=== PATIENT | male | born 1985 | race Caucasian/White ===

== ENCOUNTER 2016-09-29 21:40 | Inpatient (IN) | payer OTHER ==
--- NOTE | 2016-09-29 23:15 | EDPHY ---
H & P Stated Complaint: unable to sleep, bipolar Source: Patient Exam Limitations: No limitations - Personal History Current Tetanus Diphtheria and Acellular Pertussis (TDAP): Unsure - Medical/Surgical History Hx Asthma: No Hx Chronic Respiratory Disease: No Hx Diabetes: No Hx Cardiac Disease: No Hx Renal Disease: No Hx Cirrhosis: No Hx Alcoholism: No Hx HIV/AIDS: No Hx Splenectomy or Spleen Trauma: No Other PMH: fractured wrist, ADHD, Bipolar I. - Social History Smoking Status: Current some day smoker HPI/ROS: CHIEF COMPLAINT: Not sleeping HISTORY OF PRESENT ILLNESS: Patient presents with his father. Patient father reports that the patient has not slept for the past 7+ days. They are not entirely sure. He does have history of bipolar disorder any takes Abilify for this. He sees psychiatrist Dr. Luevano here in [place]. 1-2 weeks ago his Abilify was up from 20 mg daily to 30 mg daily. He said that his mood was better until the recent episode of in somnolence. He has had no thoughts of self-harm or homicidal thoughts. He has no wishes to harm himself. He is here voluntarily wants to get better and wants to sleep. He says that he is not entirely sure how much he slept in the past 7 days. He is calm and cooperative with his history of present illness. He has no other associated complaints or modifying factors. REVIEW OF SYSTEMS: Ten systems reviewed and are negative unless otherwise noted in the HPI PAST MEDICAL HISTORY: Bipolar disorder, attention deficit hyperactivity disorder SOCIAL HISTORY: Smokes cigarettes. Lives here in [place] an apartment by himself. His father lives in [facility]. FAMILY HISTORY: Noncontributory. EXAMINATION General Appearance: Alert, no distress Head: normocephalic, atraumatic Eyes: Pupils equal and round, no conjunctival pallor or injection ENT, Mouth: Mucous membranes moist. Uvula midline. Airway patent Neck: Normal inspection, supple, non-tender Respiratory: Lungs are clear to auscultation Cardiovascular: Regular rate and rhythm. No murmur. Pulses intact distally. Gastrointestinal: Abdomen is soft and nontender Back: non-tender, no bony abnormalities Neurological: GCS 15. Cranial nerves 2-12 grossly intact. A&O, nonfocal, normal gait. Strength is symmetric in all 4 limbs. Skin: Warm and dry, no rash Extremities: Nontender, no pedal edema Psychiatric: Mood and affect normal DIFFERENTIAL DIAGNOSES: Including but not limited to manic episode, sub manic episode, bipolar disorder , attention deficit hyperactivity disorder, insomnia MDM: 11:15 p.m. Manic episode a of 7+ days. The patient's father is at bedside with him. He is not suicidal or homicidal be does appear to be any manic episode. I have placed him on a detainer to complete a psychiatric workup. Resting comfortably in no acute distress. 12:30 a.m. Patient has been medically cleared. He is resting comfortably in no acute distress. His urine tox is positive for marijuana which he admits to. His urine tox is positive for amphetamine, but he does take stimulants for his attention deficit hyperactivity disorder. 12:59 a.m. At this time I have discussed the case with Dr. Garcia. He will assume care of the patient at this time. Please see his note for final disposition. Patient remains calm and cooperative. Awaiting evaluation at this time. SUPERVISION: Patient was evaluated in conjunction with the supervising physician. Please see their note for details. (Rock Schwartz) Constitutional: Initial Vital Signs Temperature (C) 98.2 F 09/29/16 22:03 Heart Rate 110 H 09/29/16 22:03 Respiratory Rate 16 09/29/16 22:03 Blood Pressure 129/92 H 09/29/16 22:03 O2 Sat (%) 97 09/29/16 22:03 O2 Delivery Mode Room Air Allergies/Adverse Reactions: oxcarbazepine [From Trileptal] Allergy (Verified 09/29/16 22:02) Home Medications: Medication Instructions Recorded ARIPiprazole [Abilify 10 mg (*)] 15 mg PO DAILY #30 tab 10/03/16 Melatonin [Melatonin 3 MG (*)] 3 mg PO HS PRN #30 tab 10/03/16 Medical Decision Making ED Course/Re-evaluation: I took over care of this patient at 1:00 a.m.. The patient is currently on a detainer. He is bipolar and currently manic. He is to be evaluated shortly. 3:00 a.m., the patient was seen and evaluated by Behavioral Health. He was placed on an M1 hold by psychiatrist Dr. Campbell. He will be admitted to [address] [place] [address] for further management under the care of Dr. Campbell. 3:30 a.m., I have filled out the appropriate transfer paperwork. The patient was transferred to [address] [place] [address] in stable condition. (Mimi Garcia) - Data Points Laboratory Results: Laboratory Results 09/29/16 22:44 09/29/16 22:44 Medications Given: Discontinued Medications Aripiprazole (Abilify) 15 mg PO DAILY [facility] Stop: 03/29/17 13:14 Last Admin: 10/03/16 08:22 Dose: 15 mg Folic Acid (Folic Acid) 1 mg PO DAILY [facility] Stop: 03/30/17 08:59 Last Admin: 10/03/16 08:24 Dose: 1 mg Ibuprofen (Motrin) 400 mg PO Q6HRS PRN PRN Reason: Pain, Inflammatory Stop: 03/29/17 13:11 Last Admin: 09/30/16 14:31 Dose: 400 mg Lorazepam (Ativan) 0.5 - 1 mg PO Q4HRS PRN PRN Reason: Anxiety, Able to Take PO Stop: 03/29/17 05:41 Last Admin: 09/30/16 22:28 Dose: 1 mg Multivitamins (Tab-A-Koki) 1 each PO DAILY [facility] Stop: 03/30/17 08:59 Last Admin: 10/03/16 08:24 Dose: 1 each Nicotine (Nicoderm Cq) 21 mg TD EDNOW ONE Stop: 09/30/16 02:40 Last Admin: 09/30/16 02:49 Dose: 21 mg Nicotine (Nicoderm Cq) 14 mg TD DAILY PRN PRN Reason: Nicotine Withdrawal Stop: 03/29/17 13:14 Last Admin: 10/01/16 08:39 Dose: 14 mg Nicotine Polacrilex (Nicorette) 2 mg B Q1HR PRN PRN Reason: Nicotine Withdrawal Stop: 03/29/17 05:41 Last Admin: 10/03/16 13:50 Dose: 2 mg Thiamine HCl (Vitamin B-1) 100 mg PO DAILY [facility] Stop: 10/03/16 09:01 Last Admin: 10/03/16 08:25 Dose: 100 mg Thiamine HCl (Vitamin B-1) 100 mg PO ONCE ONE Stop: 09/30/16 13:13 Last Admin: 09/30/16 15:05 Dose: 100 mg Departure - Departure Disposition: [facility] IP Clinical Impression: Bipolar disease, manic Condition: Fair
[2016-09-29 23:20] LABS: % IMMATURE GRANULYOCYTES 0.4 % (0.0-1.1); ABSOLUTE IMMATURE GRANULOCYTES 0.03 10^3/uL (0.00-0.10); ADD DIFF? NO; ADD MORPH? NO; ADD SCAN? NO; ATYPICAL LYMPHOCYTE FLAG 10 (0-99); FRAGMENT RBC FLAG 0 (0-99); HEMATOCRIT 47.3 % (40.0-51.0); HEMOGLOBIN 16.5 g/dL (13.7-17.5); LEFT SHIFT FLG 0 (0-99); LIPEMIA HEMOLYSIS FLAG 90 (0-99); MEAN CELL HEMOGLOBIN 31.8 pg (27.9-34.1); MEAN CELL HEMOGLOBIN CONCENTR. 34.9 g/dL (32.4-36.7); MEAN CELL VOLUME 91.1 fL (81.5-99.8); MEAN PLATELET VOLUME 10.7 fL (8.7-11.7); PLATELET CLUMPS FLAG 20 (0-99); PLATELET COUNT 195 10^3/uL (150-400); RED BLOOD CELL COUNT 5.19 10^6/uL (4.40-6.38); RED CELL DISTRIBUTION WIDTH 11.6 % (11.5-15.2)
[2016-09-29 23:50] LABS: ALANINE AMINOTRANSFERASE 27 IU/L (21-72); ALBUMIN 4.5 g/dL (3.5-5.0); ALKALINE PHOSPHATASE 67 IU/L (38-126); ANION GAP 14 mEq/L (8-16); ASPARTATE AMINOTRANSFERASE 23 IU/L (17-59); BILIRUBIN,TOTAL 1.1 mg/dL (0.1-1.4); BILIRUBIN-CONJUGATED 0.4 mg/dL (0.0-0.5); BILIRUBIN-UNCONJUGATED 0.7 mg/dL (0.0-1.1); CALCIUM 9.7 mg/dL (8.5-10.4); CARBON DIOXIDE 21 mEq/l (22-31); CHLORIDE 109 mEq/L (97-110); CREATININE 1.2 mg/dL (0.7-1.3); ETHANOL SERUM < 10 mg/dL (0-10); GLOMERULAR FILTRATION RATE > 60; GLUCOSE 96 mg/dL (70-100); POTASSIUM 4.1 mEq/L (3.5-5.2); SALICYLATE < 1.0 mg/dL (2.0-20.0); SODIUM 144 mEq/L (134-144); TOTAL PROTEIN 6.9 g/dL (6.3-8.2)
[2016-09-30] MEDS ORDERED: NICOTINE 21 MG/24 HR PATCH TD ONE (02:39)
[2016-09-30] MEDS ORDERED: ACETAMINOPHEN 325 MG TAB PO PRN (05:42)
[2016-09-30] MEDS ORDERED: MAG HYDROX/AL HYDROX/SIMETH 30 ML UDCUP PO PRN (05:42)
[2016-09-30] MEDS ORDERED: MAGNESIUM HYDROXIDE 30 ML UDCUP PO PRN (05:42)
[2016-09-30] MEDS ORDERED: LORazepam 0.5 MG TAB PO PRN (05:42)
[2016-09-30] MEDS ORDERED: OLANZapine 10 MG TAB PO PRN ×2 (05:43→13:13)
[2016-09-30] MEDS: NICOTINE POLACRILEX 2 MG GUM B PRN ×3 (06:05→19:11)
[2016-09-30] MEDS ORDERED: PROMETHAZINE HCL 25 MG TAB PO PRN (13:12)
[2016-09-30] MEDS ORDERED: chlordiazePOXIDE 25 MG CAP PO PRN (13:12)
[2016-09-30] MEDS ORDERED: PROMETHAZINE HCL 25 MG SUPPR PR PRN (13:12)
[2016-09-30] MEDS ORDERED: IBUPROFEN 200 MG TAB PO PRN (13:12)
[2016-09-30] MEDS ORDERED: THIAMINE HCL 100 MG TAB PO ONE (13:12)
[2016-09-30] MEDS ORDERED: NICOTINE 14 MG/24 HR PATCH TD PRN (13:14)
[2016-09-30] MEDS ORDERED: MELATONIN 3 MG TAB PO PRN (13:16)
[2016-09-30] MEDS ORDERED: SENNOSIDES 1 TAB PO PRN (13:36)
[2016-09-30] MEDS: ARIPiprazole 10 MG TAB PO SCH (14:30)
--- NOTE | 2016-09-30 15:41 | BAPA ---
[f rep st] ADMISSION PSYCHIATRIC ASSESSMENT DATE OF SERVICE: 09/30/2016 CHIEF COMPLAINT: "I haven't been sleeping. I became very disorganized. I was smoking a lot of pot , spending time in front of the TV." HISTORY OF PRESENT ILLNESS: Patient is a 31-year-old unmarried man who presented to [facility] voluntarily with his father after not having slept for approximately 7 days and having increased p aranoia. Patient reported that he felt like people were hacking into his computer, and these though ts are not normal for him. Patient states he believes this has been going on for about a week, but he is not entirely sure for how long. Per Father, he has witnessed paranoid behavior from the patie nt this week when patient insisted on closing his blinds because he believes someone was staring int o his window. Father stated patient has had paranoid behavior on and off since the patient's diagno sis at the age of 18. Father stated he is concerned for the patient's safety, as he has made suicid al threats in the past. Father said he did not make any suicidal statements on the day that he took him to the emergency room. In the ED, patient denied any thoughts, plans, or intents to hurt himse lf or anyone else. He has a history of bipolar I diagnosis and ADHD diagnosis. Patient denied any prior suicide attempts. Patient states that the reason he called his father on night was b ecause "I didn't feel like I was able to make decisions." He says that calling his father was "a cr y for help." Patient states that he has been "smoking a lot of pot" and isolating in his house. He says that when he smokes pot, it makes him more paranoid and more anxious. He says that he also ge ts a lot of visual distortions. He sees different shapes and things moving in his visual field, but he denies any auditory or visual hallucinations. He states that he has also been drinking a lot of alcohol but says that he has not had anything to drink for the last 3-4 days. He says that when he drinks, he does sometimes black out. PAST PSYCHIATRIC HISTORY: Last fall, the father said that the patient made suicidal statements and police were alerted, and the patient was hospitalized. He has 3 prior hospitalizations, 1 in [facility] in 2003 and 2 in [place] approximately 5 years ago. Patient denies any thoughts of HI or a hi story of violence but stated he has "hurt people emotionally." Patient states that he was in [facility] last fall sometime, but he cannot remember the exact circumstances but says that he was dischar gebarry from the ED without being placed on an M1 hold because he was deemed to safe to go home. Joe mclean sees Dr. Randy Luevano as his outpatient psychiatrist, and he sees Julissa Carvalho as his therapi st. Patient states that he has been taking Abilify and Vyvanse for "several years." He states that Dr. Luevano recently increased his Abilify from 10 mg to 20 mg approximately 1 to 2 weeks ago mane und the time that his symptoms started worsening. However, patient is very guarded when MD asked qu estions about his use of medications, and he admits that he may be taking more Vyvanse than he is pr escribed. During the conversation, when MD asked patient how often he sees Dr. Luevano, the patie nt said, "Only when I need more speed." MD clarified if the patient, by speed, meant Vyvanse, and t he patient said, yes, that is what he meant. ALLERGIES: Patient states that he has an allergy to Tegretol. CURRENT MEDICATIONS: Patient is on Abilify 20 mg p.o. daily, Vyvanse 40 mg p.o. daily. He denies a ny other prescription medications. PAST MEDICAL HISTORY: Patient denies that he has any physical health problems. He says that he had surgery on his left finger after a fracture, that he had some hardware placed. He says that he did have a concussion about 5-10 years ago. He is not sure. He was intoxicated at the time, fell and his hit his head on a toilet bowl. He needed stitches in the ED. SOCIAL HISTORY: The patient lives alone in an apartment with a cat. His father lives in [place]. Both his biological parents are still , and they live in [place]. He states that his par ents are quite wealthy and they finally support him. He states that he does have a 33-year-old sist er who lives in [place] but that he is not very close to her and that they do not stay in contact. T he patient does not work and is financially supported by his parents. LEGAL HISTORY: Patient denies any arrests but states that he had a restraining order placed against him approximately a year ago. It was for making too many unwanted calls to a girl that he was inte rested in, but he says that they were not in a "sexual relationship." SUBSTANCE USE HISTORY: Patient states that he started drinking and smoking marijuana around 17 year s old. He says that he smoked marijuana daily since the age of 17. He says that he also has been a heavy drinker. He says that he drinks anywhere from 1-2 six-packs of beer every other day and says that he endorses having blackouts, but he denies any withdrawal symptoms. He denies any history of withdrawal seizures. He states that he has not had any alcohol in the last 3-4 days, and his blood alcohol level in the ED was less than 10. He denies any other drug use. FAMILY HISTORY: Patient and father both deny any family history of mental illness, psychiatric diag noses, and no history of substance use disorders. ADMISSION LABORATORIES: On admission in the ED, patient's white cell count was 8.34, his hemoglobin was 16.5, his hematocrit was 47.3, platelet count was 195. His sodium was 144, potassium was 4.1, chloride was 109, BUN was 11, creatinine was 1.2. His glucose was 96. His AST was 23, ALT was 27, alk phos was 67, total protein was 6.9. His toxicology screen: Salicylates and acetaminophen were undetectable. His urine drug screen was positive for both amphetamines and marijuana. His blood al cohol level was less than 10. MENTAL STATUS EXAMINATION: Patient is a well-developed man with several days' growth of b eard. He has a blunted affect and has some psychomotor retardation. His speech is slow. He is oth erwise pleasant, calm, and cooperative. His affect is blunted. His mood, he says, is "okay." His thought process is tangential. He occasionally does lose his train of thought and asks the MD to re peat his questions, although, for most of the interview, he has no response latency, and his speech is fluid. His thought content: Patient denies any auditory or visual hallucinations. He denies an y paranoia. There is no evidence of psychosis or delusions. He denies any thought, plans, or inten ts to hurt himself or anyone else. He is alert and oriented x3. His intellect appears to be somewh at below average based upon his fund of knowledge and vocabulary, but it may just be due to his psyc homotor retardation. His insight and judgment both appear to be poor. IMPRESSION: This is a 31-year-old male with a prior diagnosis of bipolar disorder and ADHD who is c urrently being treated by his outpatient psychiatrist with Abilify and Vyvanse. His main complaint upon presentation to the ED was that he had not been sleeping and he was very disorganized and that he had been smoking a lot of pot. There are questions of whether or not the patient is abusing his Vyvanse, but he has certainly been smoking a lot of pot and drinking alcohol to intoxication on a re gular basis. All of his substance use problems would account for the lack of mental clarity, the di sorganization, the confusion, the lack of sleep, as well as some of the mood lability that he presen ts with. He is not currently psychotic, nor does he demonstrate any signs or symptoms of rocio; the refore, this seems likely to be substance induced primarily. DIAGNOSES: 1. 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 2. Cannabis use disorder, severe, dependent. 3. Alcohol use disorder, severe, dependent. Not currently experiencing withdrawal. It has been gr eater than 96 hours since the patient's last drink. He denies any signs of withdrawal, and his murphy l signs are stable. 4. Amphetamine use disorder. 5. Psychosocial stressors include some possible social and emotional developmental delay. He is un employed. He is financially supported by his parents. He is isolated, lives alone, has limited sup port, and his family lives in other cities. PLAN: 1. Admit patient to the behavioral health inpatient unit on an M1 hold. 2. Monitor closely for safety and suicide precautions. 3. Recommend holding patient's Vyvanse, as this is likely contributing to his insomnia as well as h is mood instability and possibly his thought disorganization. He also admits that he has been abusi ng this medication by taking more than the prescribed amount. We will also recommend lowering his A bilify dose, as the patient had his Abilify basically doubled within the last 2 weeks. MD explained to the patient that it might be more logical to increase his dose in a stepwise fashion and prescri be 15 mg for a period of time before deciding whether or not he needs the additional higher dose. I t is also not clear that any of his mood instability is actually due to a comorbid mood disorder, an d it would be impossible to make that determination as long as the patient continues to use serious mood altering substances in such large quantities and so frequently. 4. Therefore, would strongly recommend that this patient get substance use disorder intervention. At a minimum, MD would recommend intensive outpatient treatment, as patient has had this problem for almost 15 years. He has been a daily user of mood altering substances, all of which can contribute to symptoms of depression, thought disorganization, insomnia, mood lability, irritability, suicidal ideation, all the problems for which he has been hospitalized and/or treated on an outpatient basis . The primary diagnosis, therefore, that this MD sees as contributing to his current presentation, is his substance use disorder which does not seem to be effectively treated or managed at the [facility]. Would recommend, therefore, substance-specific treatment, such as IOP or similar, to begin, followed up with aftercare plan with one-on-one counseling with a certified addictions counselor. 5. Patient will engage in individual, group, and milieu psychotherapies. 6. Estimated length of stay is 3-5 days. 7. retail pricing coordinator will assist with making followup appointments with the patient's regular outpat ient provider including Dr. Luevano and Julissa Carvalho, his therapist. /[id number]/MODL
--- NOTE | 2016-09-30 21:57 | BCON ---
[f rep st] BEHAVIORAL HEALTH CONSULTATION INTERNAL MEDICINE CONSULTATION DATE OF CONSULTATION: 09/30/2016 REFERRING PHYSICIAN: Blas Campbell MD REASON FOR REFERRAL: Medical clearance for inpatient behavioral health stay. HISTORY OF PRESENT ILLNESS: This patient presented to the [facility] Emergency Department with his father. Father was reporting that the patient had not slept for 7+ days. He has a history of bipolar disorder, and there was concern about an exacerbation. He was evaluated by the mental health team and admitted for further psychiatric care. He has no acute medical complaints. He reports that his chest feels somewhat tight and he thinks it may be because he is a smoker. He denies any cough or dyspnea other than the usual smoker's cough. PAST MEDICAL HISTORY: 1. Mental health diagnoses including ADHD and bipolar 1. 2. Right hand 3rd finger fracture, which was surgically repaired. MEDICATIONS: He is prescribed lisdexamfetamine 40 mg p.o. daily and aripiprazole 10 mg p.o. daily. ALLERGIES: There is an allergy listed to oxcarbazepine. SOCIAL HISTORY: He lives by himself in an apartment in [place]. He smokes cigarettes. He does not work and he reports that "I sit around and smoke marijuana all day and stare at the computer." FAMILY HISTORY: Noncontributory. REVIEW OF SYSTEMS: A 10-point review of systems was conducted and other than as in HPI, it was negative. He reports constipation times several days. He is not sure how long. PHYSICAL EXAM: VITAL SIGNS: Blood pressure is 147/76. Heart rate is 100. Respiratory rate is 14. Oxygen saturation is 97% on room air. Temperature is 36.6 degrees centigrade. His weight is 90.7 kg for a body mass index of 25. GENERAL: This is a well-nourished, well-developed man, appears his chronologic age, cooperative, and in no acute distress. HEENT: Extraocular movements are intact. Pupils are equal, round, and reactive to light. Mucous membranes are moist. Dentition is in good condition. NECK: Supple. HEART: There is regular rate and rhythm with no murmurs, rubs, or gallops. LUNGS: Clear to auscultation bilaterally. ABDOMEN: Soft, nontender, nondistended with normoactive bowel sounds. EXTREMITIES: There is no cyanosis, clubbing, or edema. NEUROLOGIC: He is alert and oriented x3. He is sad in appearance and has episodes of tearfulness. Cranial nerves 2-12 are grossly intact. There is no focal weakness. Sensation is intact to light touch, and gait is within normal limits. LABORATORY STUDIES: Drawn in the emergency department: CBC was overall within normal limits. Serum chemistry revealed a slightly low carbon dioxide of 21. Otherwise, renal function, liver function, and electrolytes were within normal limits. Toxicology screen in the serum was negative for salicylates, acetaminophen, or ethyl alcohol, and in the urine was non-negative for amphetamines and marijuana, but negative for any other substances of abuse. ASSESSMENT/RECOMMENDATIONS: 1. Mental health issues. Pending further evaluation and management per Psychiatry and the mental health team. 2. Tobacco dependence syndrome. Advised smoking cessation. 3. Elevated blood pressure. Advised monitoring blood pressure. If it remains elevated, would consider initiating antihypertensive therapy. 4. Constipation. I will prescribe senna on a p.r.n. basis. I see no medical contraindications to this patient's continued stay in the inpatient behavioral health unit or to any psychiatric medications or procedures. Thank you very much for including me in the care of this patient and please do not hesitate to contact me or the hospitalist service should there be need for further medical evaluation. /[id number]/MODL MTDD
[2016-10-01] MEDS: NICOTINE POLACRILEX 2 MG GUM B PRN ×2 (06:30→12:31)
[2016-10-01] MEDS: THIAMINE HCL 100 MG TAB PO SCH (08:37)
[2016-10-01] MEDS: ARIPiprazole 10 MG TAB PO SCH (08:37)
[2016-10-01] MEDS: MULTIVITAMINS 1 EACH TAB PO SCH (08:38)
[2016-10-01] MEDS: FOLIC ACID 1 MG TAB PO SCH (08:38)
--- NOTE | 2016-10-01 20:09 | SOAPPROG ---
SOAP Progress Note Assessment/Plan: Assessment: Plan: 10/01/16 20:10 Improving. CCM. Subjective: Pt seen, discussed with staff ,chart reviewed. Went to group this morning and then retired to his room and slept. C/o of anxiety but not reaching threshold on CIWA. Overall cooperative if a bit guarded. Offers no other specific c/o' s. Objective: Vital Signs Temp Pulse Resp BP Pulse Ox 36.4 C 91 14 136/79 H 97 10/01/16 14:55 10/01/16 18:00 10/01/16 14:55 10/01/16 18:00 10/01/16 18:00 MSE: Adequately groomed, coop. Affect is constricted, stable. Mood is "OK." TP linear. TC reveals no overt psychosis. Possible mild paranoia. Denies active SI to me. - Time Spent With Patient Time Spent With Patient: 15" ICD10 Worksheet Patient Problems: Problems Problem Status Onset Bipolar disease, manic Acute
[2016-10-02] MEDS: NICOTINE POLACRILEX 2 MG GUM B PRN ×4 (06:01→17:08)
[2016-10-02] MEDS: FOLIC ACID 1 MG TAB PO SCH (08:20)
[2016-10-02] MEDS: MULTIVITAMINS 1 EACH TAB PO SCH (08:20)
[2016-10-02] MEDS: THIAMINE HCL 100 MG TAB PO SCH (08:21)
[2016-10-02] MEDS: ARIPiprazole 10 MG TAB PO SCH (08:21)
--- NOTE | 2016-10-02 21:10 | SOAPPROG ---
SOAP Progress Note Assessment/Plan: Assessment: 31yo CM admitted 2/2 incr paranoia/psychosis, and insomnia. Per admission H/P, had been using THC, recent EtOH and more Vyvanse than Rxd, also Abilify dose increased over 2 weeks. 10/02/16 15:30 Pt slept 8hr per staff. 0-1 on CIWAs. On interview, states parents visited today. Good visit, feels they are supportive. Denied any misuse or overuse of Vyvanse. 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 Came in with father, didn't expect nor want inpt psych. Does feel better gradually, daily, since in hospital, he admits. feels getting caught up on sleep. a bit irritable b/c "i was woken up to get asked stupid questions", but then conceded that he has slept a lot already, and that there were no "stupid questions", rather just review of precipitants to admission and noted improvements since clearing from THC/EtOH and on current meds. admits felt frustrated b/c didn't remember several statements he made mentioned in admission presentation to ED, and seemed a bit guarded about computer being hacked being considered paranoid. Discussed thought d/o and psychotic sxs, and relation to subst use, withdrawal, and insomnia, and also Vyvanse. insists he took Vyvanse only as Rxd. Thinks perhaps he shouldn't have abruptly d/cd THC. Also decreased EtOH from 6/ day to 2drinks QOD a few dd SECURITIES ANALYST. Discussed EtOH W/d sxs. Admits experienced +VH of a bug on wall shortly after admission. No other hallucinations of any type since. Denied any paranoia or irrational fears. Reports attending groups regularly. Sleeping well at HS and also taking daytime naps. Feels has a lot of catch up sleep to do. Denied any medication s/e. Endorsed +hx of CHOCO before lost weight. Doesn't think having any CHOCO sxs now. mse: calm, coop, good/fair eye contact, speech nml/low vol, nml rate, flattened/ restricted affect, mood "okay, a little irritated" (as noted above), denied AH/ VH and no evid of delusional thoughts. denied SI or thoughts to harm others. i/j -both seem limited, concrete. Plan: cont abilify 15mg qd. no clear indication for increase. Discussed [facility] exp at 3am. Agreed to sign in voluntarily. discussed need for having good d/c plan in place b4 d/c. no concerns for acute safety issues or clear need for STC. Contemplating returning to AA. Does find outpt therapy helpful weekly as doing and plans to continue after d/c. need continued education on THC effects on mental health, also EtOH. consider dual dx IOP ?need to reeval CHOCO as outpt since w/+hx. may benefit from formal sleep study. reeval need for Vyvanse as outpt vs d/c. Objective: Vital Signs Temp Pulse Resp BP Pulse Ox 36.6 C 76 16 126/67 H 98 10/02/16 10:02 10/02/16 14:00 10/02/16 14:00 10/02/16 14:00 10/02/16 14:00 - Time Spent With Patient Time Spent With Patient: 35min - Pending Discharge Pending Discharge Within 24 Hours: No Pending Discharge Within 48 Hours: No ICD10 Worksheet Patient Problems: Problems Problem Status Onset Bipolar disease, manic Acute
[2016-10-03] MEDS: NICOTINE POLACRILEX 2 MG GUM B PRN ×4 (06:23→13:50)
[2016-10-03 06:35] VITALS: BP 136/65; PULSE 93; RESP 18; TEMP 98.1; O2SAT 96
[2016-10-03] MEDS: ARIPiprazole 10 MG TAB PO SCH (08:22)
[2016-10-03] MEDS: MULTIVITAMINS 1 EACH TAB PO SCH (08:24)
[2016-10-03] MEDS: FOLIC ACID 1 MG TAB PO SCH (08:24)
[2016-10-03] MEDS: THIAMINE HCL 100 MG TAB PO SCH (08:25)
--- NOTE | 2016-10-03 22:10 | BDS ---
[f rep st] BEHAVIORAL HEALTH DISCHARGE SUMMARY REASON FOR ADMISSION: The patient is a 31-year-old man, who presented to [facility] ED voluntari ly with his father after not having slept for approximately 7 days and having increased paranoia. T he patient reported that he felt like people were hacking into his computer. The patient states he angela landeroses this has been going on for about a week but he is not entirely sure for how long. Per darlene oliva, he has witnessed paranoid behavior from the patient this week when patient insisted on closing hi s blinds because he believed someone was staring into his window. Father stated the patient has had paranoid behavior on-and-off since the patient's diagnosis at the age of 18. Father said the patie nt did not make any suicidal statements on the day he took him to the emergency room. In the ED, he denied any thoughts, plans, or intents to hurt himself or anyone else. He has a history of bipolar 1 diagnosis and ADHD diagnosis. Patient denied any prior suicide attempts. The patient states cathy t he has also been drinking a lot of alcohol but says he has not had anything to drink for the past 3-4 days. He says that when he drinks, he does sometimes black out. The patient also admits to smo flory marijuana daily and also admits to taking more than his prescribed amount of Vyvanse. ADMITTING DIAGNOSES: 1. 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 2. Cannabis use disorder, severe, dependent. 3. Alcohol use disorder, severe, dependent, not currently experiencing any withdrawal. 4. Amphetamine use disorder. 5. Substance-induced psychosis. 6. Psychosocial stressors include unemployed, financially supported by his parents, isolated, lives alone, limited support from his family who live in another city. PHYSICAL EXAMINATION: Was performed by Dr. Alexis Sexton, please see his H and P for details of t he physical exam. ADMISSION LABORATORIES: The patient's white cell count was 8.34, hemoglobin was 16.5, hematocrit wa s 47.3, platelet count was 195. Sodium was 144, potassium was 4.1, chloride was 109. AST was 23, A LT was 27, alk phos was 67. Tox screen was positive for amphetamines and for marijuana, negative fo r all other drugs of abuse. Salicylates and acetaminophen were undetectable. Blood alcohol level w as less than 10. HOSPITAL COURSE: The patient was admitted to the behavioral services inpatient unit on an M1 hold. He was pleasant and cooperative. Flat affect. He did not show any signs or symptoms of rocio. He did not have pressured speech or racing thoughts. He did not have decreased need for sleep. He sl ept 9-10 hours each night that he was in the hospital. His appetite was good. He reported his mood was "okay. He denied any paranoia. He denied any other delusions. There were no other signs or e vidence of psychotic symptoms. He denied auditory and visual hallucinations. The patient stated th at the main reason that he got admitted to the hospital was because "I did not feel I was able to ma ke decisions." He says that calling his father was "a cry for help." He admits to feeling "strange and confused." The patient admitted to significant use of alcohol, which does not seem to be somet ina he has previously disclosed to his outpatient providers. He reports that he was using anywhere from 6-12 beers a day and he was drinking most days out of the week, although he had not had anythi ng to drink for 3-4 days prior to his admission. He endorses having blackouts but denies any histor y of withdrawal seizures. He states that he has been smoking marijuana daily since he was 17 years old. He also admits that he has occasionally used more than his prescribed amount of Vyvanse. Whil e patient was in the hospital, this MD recommended holding the patient's Vyvanse as this was contrai ndicated given the patient's mood as well as psychotic symptoms and his intermittent insomnia, which he says that he has he has had on-and-off for several years. He said it had been particularly bad for the 2 weeks prior to his admission. MD explained to him the risks, benefits, and side effects o f taking a psychostimulant. The patient also presents as having possible emotional and social devel opmental delays. His ability to maintain eye contact, to engage in conversation, to leaf size picker on nonv erbal cues, to speak with intonation, to appreciate facial gestures, to respond to cues in his envir onment, all seem to be significantly diminished. This may be as a result of an ongoing psychotic di sorder or mood disorder but it may also be symptoms of a developmental delay, which may account for some of his problems with attention and concentration, although the more likely proximate cause of h is problems with attention is his chronic use of alcohol and marijuana, both of which have significa nt affects on cognition as well as attention, judgment, and memory. It was therefore recommended th at the patient discontinue taking Vyvanse once he leaves the hospital, but he was advised to discuss it with his outpatient psychiatrist upon discharge. He agreed that he would do that. He agreed to holding the Vyvanse while he was inpatient. His inpatient treating psychiatrist also recommended d ecreasing his dose of Abilify. He had recently had his long-standing maintenance dose increased fro m 10 mg to 20 mg approximately 1-2 weeks prior to admission. He agreed to lowering the dose to 15 m g as an intermediate step to determine whether or not he needed that additional dose of medication. His inpatient treating psychiatrist believed that if this patient were to discontinue his use of mo od-altering substances and hallucinogenic recreational drugs, that he may not need as much antipsych otic medication in order to stabilize his mood and to treat his soft symptoms of psychosis. The pat kirsten agreed to the reduction in Abilify and he was maintained on 15 mg in the hospital and discharge d with a prescription for 15 mg dose, as well as a prescription for melatonin to take at night, whic h he said was helpful. CONDITION ON DISCHARGE: Patient was stable. His affect was flat. He described his mood as "okay." He did admit that he felt much improved, that he had increased sleep, he was sleeping 9-10 hours. He also said his appetite was back to normal. He said that he felt like he was able to think al r and more clearly, and he was not as confused. He said he felt like he was able to "talk more cohe rently." He said that he felt "less stuck in my imagination." DISCHARGE MEDICATIONS: Include Abilify 15 mg p.o. q.h.s., as well as melatonin 2 mg p.o. q.h.s. p.r .n. for insomnia. DISCHARGE DIAGNOSES: 1. Substance-induced psychotic disorder. 2. Cannabis use disorder, severe, dependent. 3. Alcohol use disorder, severe, dependent. 4. Amphetamine use disorder. 5. Psychosocial stressors include possible social and emotional developmental delay. The patient i s unemployed. He is financially supported by his parents. He is isolated, lives alone, and has mulligan ited support as his primary support, which is his parents, live in [place]. DISPOSITION: Patient left hospital with his father. FOLLOWUP: Patient has a followup appointment with his outpatient psychiatrist, Dr. Luevano, on at 3:30 p.m. and he also has a followup with his outpatient therapist, Julissa Carvalho , on at 10 a.m. LEGAL COURSE: The patient was converted to voluntary status upon expiration of his M1 hold. /[id number]/MODL
== END 2016-10-03 14:38 | disposition home or self-care (01) | DRG 897 ==
LOC: BBEH 09-30 05:25
PROVIDERS: ADMIT Specialist; ATTEND Specialist
DX: F12.259 Cannabis dependence with psychotic disorder, unspecified (principal); F10.259 Alcohol dependence with alcohol-induced psychotic disorder, unspecified; F15.959 Other stimulant use, unspecified with stimulant-induced psychotic disorder, unspecified; F17.200 Nicotine dependence, unspecified, uncomplicated; K59.00 Constipation, unspecified; F31.9 Bipolar disorder, unspecified; F90.9 Attention-deficit hyperactivity disorder, unspecified type
CPT/HCPCS: 80305; G0480

== ENCOUNTER 2016-11-11 17:52 | Emergency (ER) | payer OTHER ==
--- NOTE | 2016-11-11 18:04 | EDPHY ---
H & P Stated Complaint: Got drunk last night;fell;not sure what happened;facial abrasions Time Seen by Provider: 11/11/16 18:04 - Personal History Current Tetanus Diphtheria and Acellular Pertussis (TDAP): Unsure - Medical/Surgical History Hx Asthma: No Hx Chronic Respiratory Disease: No Hx Diabetes: No Hx Cardiac Disease: No Hx Renal Disease: No Hx Cirrhosis: No Hx Alcoholism: No Hx HIV/AIDS: No Hx Splenectomy or Spleen Trauma: No Other PMH: fractured wrist, ADHD, Bipolar I. - Social History Smoking Status: Current every day smoker Constitutional: Initial Vital Signs Temperature (C) 36.9 C 11/11/16 17:58 Heart Rate 96 11/11/16 17:58 Respiratory Rate 16 11/11/16 17:58 Blood Pressure 142/90 H 11/11/16 17:58 O2 Sat (%) 94 11/11/16 17:58 O2 Delivery Mode Room Air Allergies/Adverse Reactions: oxcarbazepine [From Trileptal] Allergy (Mild, Verified 11/11/16 17:58) blurred vision Home Medications: Medication Instructions Recorded ARIPiprazole [Abilify 10 mg (*)] 15 mg PO DAILY #30 tab 10/03/16 Melatonin [Melatonin 3 MG (*)] 3 mg PO HS PRN #30 tab 10/03/16 Lisdexamfetamine Dimesylate 60 mg PO DAILY 11/11/16 [Vyvanse] Medical Decision Making - Diagnostics Imaging Results: Imaging Impressions Head CT 11/11/16 18:19 Impression: Normal noncontrast CT of the brain. Results called to Dr. Bari Gann at 6:30 PM at the time of the interpretation. Imaging: Discussed imaging studies w/ scallop binder Radiologist ED Course/Re-evaluation: CHIEF COMPLAINT: Fall, disorientation HISTORY OF PRESENT ILLNESS: This patient is a 31 year old male arriving with his father complaining of disorientation secondary to a mechanical fall while drinking yesterday evening. He does not remember what happened since he was drinking heavily, but woke with abrasions to his forehead and nose. He is not sure if he lost consciousness. He is not anticoagulated. He did take Excedrin today for headache relief. His father at bedside states the patient called him earlier today complaining of feeling "strange" and disoriented, so he recommended he present to the emergency department for evaluation. No fever, vomiting, shortness of breath, chest pain, or other associated symptoms. REVIEW OF SYSTEMS: A 10 point review of systems was performed and is negative with the exception of the elements mentioned in the history of present illness. PHYSICAL EXAM: HR, BP, O2 Sat, RR. Temp noted General Appearance: Alert, well hydrated, appropriate, and non-toxic appearing. Head: Abrasion and ecchymosis to forehead. Eyes: Pupils equal, round, reactive to light and accommodation, EOMI, no trauma , no injection. Ears: Clear bilaterally, no perforation, normal landmarks Nose: Abrasions to bridge of nose. Throat: Mucus membranes moist. Neck: Supple, nontender, no lymphadenopathy. Respiratory: No retractions, no distress, no wheezes, and no accessory muscle use. Lungs are clear to auscultation bilaterally. Cardiovascular: Regular rate and rhythm, no murmurs, rubs, or gallops. Good capillary refill all extremities. Gastrointestinal: Abdomen is soft, nontender, non-distended, no masses, no rebound, no guarding, no peritoneal signs. Musculoskeletal: Normal active ROM of all extremities, atraumatic. Neurological: Baseline mental status secondary to mental illness. Nonfocal neuro exam. Skin: No rashes, good turgor, no nodules on palpation. Past medical history: Takes Abilify and Vyvanse. Past surgical history: Noncontributory Family history: Noncontributory Social history: Father at bedside. DIFFERENTIAL DIAGNOSIS: The differential diagnosis for the patient's head injury included but was not limited to concussion, skull fracture, intra-parenchymal contusion, subarachnoid , subdural and epidural hematoma. MEDICAL DECISION MAKIN31 year old male presents with facial abrasions secondary to a fall yesterday evening. Physical exam reveals ecchymosis and abrasions to forehead and bridge of nose. He declines pain medication at this time. Plan for CT head without contrast to evaluate for acute intracranial processes. 18:[address] Hall, radiologist. CT head negative for fracture, hematoma, or other acute processes. 18:50 Reassessed patient. Discussed followup and return precautions. Plan to discharge home in good condition. The patient and his father are comfortable with this plan. Departure - Departure Disposition: Home, Routine, Self-Care Clinical Impression: Concussion Qualifiers: Encounter type: initial encounter Loss of consciousness presence/duration: without LOC Qualified Code(s): S06.0X0A - Concussion without loss of consciousness, initial encounter Hangover Qualifiers: Complication of substance-induced condition: uncomplicated Qualified Code(s): F10.120 - Alcohol abuse with intoxication, uncomplicated Condition: Good Instructions: Concussion (ED) Additional Instructions: 1. Use Tylenol or ibuprofen as needed for headache. 2. Brain rest while symptoms are present. Your symptoms could last days to weeks. Avoid screen time including TV, computers, phones, and video games. It is important to avoid any activities that could put you at risk for another head injury while your symptoms are present. No bicycling, contact sports, skiing, or other risky activities. Expect a follow up call from us in 10-14 days to discuss any ongoing concussion symptoms. They will refer you to a head injury specialist if necessary. 3. Follow up with your primary care provider in the next 3-4 days. 4. Return to the Emergency Department if you develop a severe headache, numbness or weakness in your extremities, difficulty speaking, difficulty walking, uncontrollable vomiting, or other worsening of condition. Referrals: SONU TURNER [Other] - As per Instructions Darling Ruiz MD [Medical Doctor] - As per Instructions Report Scribed for: Bari Gann Report Scribed by: Geraldine Herrera Date of Report: 11/11/16 Time of Report: 18:45
[2016-11-11 19:08] VITALS: BP 132/76; PULSE 91; RESP 18; TEMP 98.1; O2SAT 95
== END 2016-11-11 19:09 | disposition home or self-care (01) ==
DX: S06.0X0A Concussion without loss of consciousness, initial encounter (principal); W19.XXXA Unspecified fall, initial encounter; F10.120 Alcohol abuse with intoxication, uncomplicated; F17.200 Nicotine dependence, unspecified, uncomplicated

== ENCOUNTER 2016-11-16 11:04 | Emergency (ER) | payer OTHER ==
--- NOTE | 2016-11-16 11:31 | EDPHY ---
General Narrative: CHIEF COMPLAINT: Headache, head injury on November 11 HISTORY OF PRESENT ILLNESS: Patient reports ongoing headache, nausea and difficulty is thought process. He says he fell on November 11 striking his head on the ground. He sustained lacerations and concussion. He was seen here in the emergency department with a normal CT scan of the head. Discharged home with instructions to return to emergency department should his symptoms worsen. Symptoms are no worse than when he went home with a have not improved at all. [id number] headache. Some pressure. Some nausea and difficulty with his thought process and getting words out. No neck pain or stiffness. No fever chills. No other associated complaints or modifying factors. He has not yet followed up with anyone since discharge from the emergency department. REVIEW OF SYSTEMS: Ten systems reviewed and are negative unless otherwise noted in the HPI PAST MEDICAL HISTORY: Bipolar disorder, attention deficit hyperactivity disorder PAST SURGICAL HISTORY: None pertinent to this visit. Reviewed SOCIAL HISTORY: Smoker. Lives in [facility]. Family lives in [facility] FAMILY HISTORY: Noncontributory EXAMINATION General Appearance: Alert, no distress Head: normocephalic, atraumatic. No Bernabe sign. Superficial abrasions to the forehead that are healing well. Eyes: Pupils equal and round, no conjunctival pallor or injection ENT, Mouth: Mucous membranes moist. Airway patent Neck: Normal inspection, supple, non-tender Respiratory: Lungs are clear to auscultation Cardiovascular: Regular rate and rhythm. No murmur. Pulses intact distally Gastrointestinal: Abdomen is soft and nontender Back: non-tender, no bony abnormalities Neurological: GCS 15. A&O, nonfocal, normal gait. No pronator drift. No dysmetria. Normal mental status. Skin: Warm and dry, no rash. Superficial abrasions to the forehead Extremities: Nontender, no pedal edema. Symmetric range of motion all 4 extremities Psychiatric: Mood and affect normal DIFFERENTIAL DIAGNOSES: Including but not limited to post concussion syndrome, intracranial hemorrhage, share injury, headache, bipolar disorder, schizoaffective disorder MDM: 11:30 a.m. Post concussion syndromes with closed head injury on November [address] scan of the head. He describes pressure, headache, nausea and occasional difficulty with speech and thought process. Neuro examination is unremarkable. MRI has been ordered. He is in no acute distress. 12:45 p.m. Notified by radiologist Dr. Richmond. No abnormality of the MRI. 1:00 p.m. I re-evaluated the patient. He remains awake and alert in no acute distress. No focal findings. We discussed the MRI findings. We discussed discharge home with symptomatic care instructions. I would like him to follow up with our concussion specialist for further care. ED precautions discussed. He is comfortable with this plan and discharged home in stable condition - Diagnostics Imaging Results: Imaging Impressions Brain MRI 11/16/16 11:31 Impression: Normal MRI of the brain without contrast. Findings discussed with Rock Schwartz 11/16/2016 at 12:41. - History Smoking Status: Current every day smoker - Objective Vital Signs: Initial Vital Signs Temperature (C) 97.5 F 11/16/16 11:05 Heart Rate 74 11/16/16 11:05 Respiratory Rate 16 11/16/16 11:05 Blood Pressure 129/76 H 11/16/16 11:05 O2 Sat (%) 98 11/16/16 11:05 O2 Delivery Mode Room Air Allergies/Adverse Reactions: oxcarbazepine [From Trileptal] Allergy (Mild, Verified 11/16/16 11:05) blurred vision Home Medications: Medication Instructions Recorded ARIPiprazole [Abilify 10 mg (*)] 15 mg PO DAILY #30 tab 10/03/16 Melatonin [Melatonin 3 MG (*)] 3 mg PO HS PRN #30 tab 10/03/16 Lisdexamfetamine Dimesylate 60 mg PO DAILY 11/11/16 [Vyvanse] Departure - Departure Disposition: Home, Routine, Self-Care Clinical Impression: Post concussion syndrome Condition: Good Instructions: Post Concussion Syndrome (ED) Additional Instructions: 1. Follow up with primary care physician and concussion specialist 2. ED precautions as discussed Referrals: SONU TURNER [Other] - As per Instructions Darling Ruiz MD [Medical Doctor] - As per Instructions
[2016-11-16 13:17] VITALS: BP 134/85; PULSE 73; RESP 18; TEMP 98.1; O2SAT 96
== END 2016-11-16 13:26 | disposition home or self-care (01) ==
DX: R51 Headache (principal); F07.81 Postconcussional syndrome; F17.200 Nicotine dependence, unspecified, uncomplicated

== ENCOUNTER 2017-06-07 08:40 | Inpatient (IN) | payer OTHER ==
--- NOTE | 2017-06-07 09:29 | EDPHY ---
General Time Seen by Provider: 06/07/17 09:21 Narrative: CHIEF COMPLAINT: Psychosis HISTORY OF PRESENT ILLNESS: Patient presents with complaints of "I am worried about psychosis and warned about hurting someone or myself." He admits to having thoughts of self-harm including killing himself and/or hurting others. He says he stopped his medication on his own 3 weeks ago. He said mostly "because they're expensive." He will not discuss much further with me. He will not make eye contact. He has a very flat affect and repeatedly says that he thinks he psychotic and he is going to hurt someone. He will not provide any details. He denies previous suicide attempt. He does answer yes to bipolar disorder. He is not sure he has a diagnosis of schizophrenia or schizoaffective. His medication and references Abilify. He took a dose this morning after not taking it for the last 3-4 weeks. No other associated complaints or modifying factors. PSYCHIATRIC DIAGNOSES: Bipolar disorder, ADD. Questionable schizophrenia or schizoaffective disorder PRIOR PSYCHIATRIC EVALUATIONS: Multiple M1/DETAINER: Dr. Vizcaino, 9:30 a.m. Today REVIEW OF SYSTEMS: Ten systems reviewed and are negative unless otherwise noted in the HPI EXAMINATION General Appearance: Alert, no distress Head: normocephalic, atraumatic Eyes: Pupils equal and round, no conjunctival pallor or injection ENT, Mouth: Mucous membranes moist Neck: Normal inspection, supple, non-tender Respiratory: Lungs are clear to auscultation Cardiovascular: Regular rate and rhythm. No murmur Gastrointestinal: Abdomen is soft and nontender Back: non-tender, no bony abnormalities Neurological: GCS 15. A&O, nonfocal, normal gait Skin: Warm and dry, no rash. No petechiae or purpura Extremities: Nontender, no pedal edema Psychiatric: Flat affect. Expresses suicidal ideation or homicidal ideation with intent but will not divulge this plan. DIFFERENTIAL DIAGNOSES: Including but not limited to acute psychosis, bipolar disorder, schizoaffective , schizophrenia, mood instability, suicidal ideation, homicidal ideation MDM: 9:30 a.m. M1 hold due to suicidal ideation, homicidal ideation and discontinuation of medication without supervision physician. The patient expresses intent to harm others or himself but will not disclose this plan. He will not converse with the beyond this. He has a very flat affect and expresses concern for acute psychosis. I do feel the patient is a danger to himself and in addition may meet criteria for grave disability. He has been placed on an M1 hold and psychiatric evaluation will be commenced after medical clearance. Patient is aware of this. Security is aware of this. Charge nurse aware this. 10:30 a.m. There has been delay in obtaining the patient's laboratory studies and this is currently being worked on. 1:00 p.m. Patient's laboratory studies have returned. He will be medically cleared at this time. He is positive for amphetamine but does take vyvnase. At this point he remains here on an M1 hold pending evaluation. He is medically cleared for evaluation by me at this time. I have been notified that the patient is scheduled to be evaluated around 1:30 p.m. 3:10 p.m. Notified that the patient is recommended for inpatient therapy. They are attempting placement for [address] [place] [address]. 4:15 p.m. I discussed the case with Dr. Arenas. At this time she will assume care the patient. He is pending placement at this time. He is on an M1 hold remains cooperative. Please see her note for final disposition SUPERVISION: Patient was independently examined, but I discussed the case with my secondary supervising physician Dr. Vizcaino and Dr. Arenas - History Smoking Status: Current every day smoker - Objective Vital Signs: Initial Vital Signs Temperature (C) 98.6 F 06/07/17 08:43 Heart Rate 92 06/07/17 08:43 Respiratory Rate 18 06/07/17 08:43 Blood Pressure 157/86 H 06/07/17 08:43 O2 Sat (%) 96 06/07/17 08:43 O2 Delivery Mode Room Air Allergies/Adverse Reactions: oxcarbazepine [From Trileptal] Allergy (Mild, Verified 06/07/17 08:42) blurred vision Home Medications: Medication Instructions Recorded ARIPiprazole [Abilify 10 mg (*)] 15 mg PO DAILY #30 tab 10/03/16 Melatonin [Melatonin 3 MG (*)] 3 mg PO HS PRN #30 tab 10/03/16 Lisdexamfetamine Dimesylate 60 mg PO DAILY 11/11/16 [Vyvanse] Laboratory Results: Laboratory Results 06/07/17 10:15 06/07/17 10:15 06/07/17 06/07/17 06/07/17 12:00 10:15 10:15 WBC 5.44 10^3/uL 10^3/uL (3.80-9.50) RBC 5.20 10^6/uL 10^6/uL (4.40-6.38) Hgb 16.6 g/dL g/dL (13.7-17.5) Hct 47.4 % % (40.0-51.0) MCV 91.2 fL fL (81.5-99.8) MCH 31.9 pg pg (27.9-34.1) MCHC 35.0 g/dL g/dL (32.4-36.7) RDW 11.9 % % (11.5-15.2) Plt Count 184 10^3/uL 10^3/uL (150-400) MPV 10.3 fL fL (8.7-11.7) Neut % (Auto) 63.2 % % (39.3-74.2) Lymph % (Auto) 30.3 % % (15.0-45.0) [place] % (Auto) 5.3 % % (4.5-13.0) Eos % (Auto) 0.2 % L % (0.6-7.6) Baso % (Auto) 0.6 % % (0.3-1.7) Nucleat RBC Rel Count 0.0 % % (0.0-0.2) Absolute Neuts (auto) 3.44 10^3/uL 10^3/uL (1.70-6.50) Absolute Lymphs (auto) 1.65 10^3/uL 10^3/uL (1.00-3.00) Absolute Monos (auto) 0.29 10^3/uL L 10^3/uL (0.30-0.80) Absolute Eos (auto) 0.01 10^3/uL L 10^3/uL (0.03-0.40) Absolute Basos (auto) 0.03 10^3/uL 10^3/uL (0.02-0.10) Absolute Nucleated RBC 0.00 10^3/uL 10^3/uL (0-0.01) Immature Gran % 0.4 % % (0.0-1.1) Immature Gran # 0.02 10^3/uL 10^3/uL (0.00-0.10) Sodium 142 mEq/L mEq/L (135-145) Potassium 4.3 mEq/L mEq/L (3.5-5.2) Chloride 107 mEq/L mEq/L (97-110) Carbon Dioxide 22 mEq/l mEq/l (22-31) Anion Gap 13 mEq/L mEq/L (8-16) BUN 13 mg/dL mg/dL (7-23) Creatinine 1.0 mg/dL mg/dL (0.7-1.3) Estimated GFR > 60 Glucose 89 mg/dL mg/dL (70-100) Calcium 9.4 mg/dL mg/dL (8.5-10.4) Total Bilirubin 0.7 mg/dL mg/dL (0.1-1.4) Conjugated Bilirubin 0.3 mg/dL mg/dL (0.0-0.5) Unconjugated Bilirubin 0.4 mg/dL mg/dL (0.0-1.1) AST 24 IU/L IU/L (17-59) ALT 26 IU/L IU/L (21-72) Alkaline Phosphatase 64 IU/L IU/L (38-126) Total Protein 7.3 g/dL g/dL (6.3-8.2) Albumin 4.7 g/dL g/dL (3.5-5.0) Urine Opiates Screen NEGATIVE (NEGATIVE) Acetaminophen < 10 mcg/mL L mcg/mL (10-30) Urine Barbiturates NEGATIVE (NEGATIVE) Ur Phencyclidine Scrn NEGATIVE (NEGATIVE) Ur Amphetamine Screen NON-NEGATIVE H (NEGATIVE) U Benzodiazepines Scrn NEGATIVE (NEGATIVE) Urine Cocaine Screen NEGATIVE (NEGATIVE) U Marijuana (THC) Screen NON-NEGATIVE H (NEGATIVE) Ethyl Alcohol < 10 mg/dL mg/dL (0-10) Departure - Departure Disposition: [facility] IP Clinical Impression: Acute psychosis, Bipolar 1 disorder Condition: Fair Referrals: SONU TURNER [Other] - As per Instructions
[2017-06-07 10:47] LABS: PLATELET COUNT 184 10^3/uL (150-400)
[2017-06-07] MEDS ORDERED: ACETAMINOPHEN 325 MG TAB PO PRN (19:47)
[2017-06-07] MEDS ORDERED: MAGNESIUM HYDROXIDE 30 ML UDCUP PO PRN (19:47)
[2017-06-07] MEDS ORDERED: LORazepam 0.5 MG TAB PO PRN (19:47)
[2017-06-07] MEDS ORDERED: OLANZapine DISINTEGR 10 MG TAB PO PRN (19:47)
[2017-06-07] MEDS ORDERED: MAG HYDROX/AL HYDROX/SIMETH 30 ML UDCUP PO PRN (19:47)
[2017-06-07] MEDS: NICOTINE POLACRILEX 2 MG GUM B PRN (20:28)
[2017-06-08] MEDS: NICOTINE POLACRILEX 2 MG GUM B PRN ×4 (07:20→17:15)
[2017-06-08] MEDS: ARIPiprazole 10 MG TAB PO SCH (08:31)
--- NOTE | 2017-06-08 13:17 | GCON ---
[f rep st] CONSULTATION INTERNAL MEDICINE CONSULTATION DATE OF CONSULTATION: 06/08/2017 REFERRING PHYSICIAN: Dr. Larson REASON FOR REFERRAL: Medical clearance for inpatient behavioral health stay. HISTORY OF PRESENT ILLNESS: This patient came to the emergency department complaining of psychosis and desire to hurt himself or someone else. He was placed on an M1 hold, evaluated by the mental health team, and admitted for further psychiatric care. He is currently without any acute complaints. PAST MEDICAL HISTORY: 1. Mental health issues with diagnoses of schizophrenia and bipolar disorder in the chart. 2. Attention deficit disorder. 3. History of concussion approximately 6 months ago. PAST SURGICAL HISTORY: He has not had any surgeries. MEDICATIONS: He had stopped taking for several weeks. He had been prescribed aripiprazole 15 mg p.o. daily and lisdexamfetamine 60 mg p.o. daily. ALLERGIES: There is an allergy listed to oxcarbazepine. SOCIAL HISTORY: He has a job. He works in a kitchen. He is a regular tobacco smoker. He lives in an apartment by himself. FAMILY HISTORY: Noncontributory. REVIEW OF SYSTEMS: He denies fevers, chills, weight change, cough, dyspnea, chest pain, palpitations, nausea, vomiting, constipation, or diarrhea and otherwise a 10-point review of systems is negative. He reports that he had his concussion when he had a fall while intoxicated on alcohol. Otherwise, he has not had falls. PHYSICAL EXAM: VITAL SIGNS: Blood pressure is 140/70. Heart rate has ranged from 130-157 systolic to 69-86 diastolic since he presented to the emergency department yesterday. VITAL SIGNS: Heart rate is 93, respiratory rate is 20, oxygen saturation is 95% on room air. Temperature is 36.4 degrees centigrade. His weight is 90.7 kg for a body mass index of 25. GENERAL: This is a well-nourished, well- developed man, wearing a green hospital smock. Cooperative and in no acute distress. HEENT: Extraocular movements are intact. Pupils are equal, round, reactive to light. Mucous membranes are moist. Dentition is in good condition. He has a moderately crowded airway, Mallampati class 3. NECK: Supple. HEART: There is a regular rate and rhythm with no murmurs, rubs, or gallops. LUNGS: Clear to auscultation bilaterally. ABDOMEN: Benign. EXTREMITIES: There is no cyanosis, clubbing, or edema. NEUROLOGIC: He is alert. Orientation was not tested. He has a flat affect and generally avoids eye contact. Cranial nerves 2-12 are grossly intact. There is no weakness. Sensation is intact to light touch and gait is within normal limits. LABORATORY STUDIES: Drawn yesterday in the emergency room, CBC was overall within normal limits. He had a minor decrement of absolute monocytes and absolute eosinophils of no clinical significance. Serum chemistry revealed normal renal function, electrolytes, and liver functions. Toxicology screen in the serum was negative for acetaminophen or ethyl alcohol and the urine was non- negative for amphetamines and marijuana, but otherwise was negative for substances of abuse. ASSESSMENT/RECOMMENDATIONS: 1. Mental health issues pending further evaluation and management per Psychiatry and the mental health team. 2. Tobacco dependence syndrome. Encouraged smoking cessation. 3. Elevated blood pressure. Advised serial monitoring of blood pressures. Most likely, if it remains elevated, he can follow up as an outpatient with Primary Care. It has not been high enough to place him at any acute risk during his stay. I see no medical contraindications to this patient's continued stay in the inpatient Behavioral Health Unit or to any psychiatric medications or procedures. Thank you very much for including me in the care of this patient and please do not hesitate to contact me or the hospitalist service should there be need for further medical evaluation. /[id number]/MODL MTDD
--- NOTE | 2017-06-08 16:32 | BAPA ---
[f rep st] ADMISSION PSYCHIATRIC ASSESSMENT DATE OF SERVICE: 06/08/2017 REASON FOR ADMISSION: Patient is a 31-year-old male with a history of bipolar disorder. Jamaal givens presented to the Emergency Department of his own volition stating that he felt "disorganized". He reports having stopped his psychotropic medications 2-3 weeks prior to admission including his Abilif y. He cannot give a specific reason why he did this, though states on several occasions, when asked why he stopped his medications, "because I am stupid". He told someone in [facility] that they were too exp ensive, though this is likely not the case as he is getting them through Medicaid. He also voiced th oughts of homicide and suicide when he presented to the emergency department as reported by Dr. Ilda goodson in the M1. Patient then rescinded this when he talked to [facility] and denies that to me now stating t hat "that is just a lie". He does state, however, that he felt he was not functioning well and that he needed to be back on his medicines. He voiced no other complaints except that he reported feeling "psychotic". When asked what he meant by psychotic, he states that "isn't everyone psychotic who is in the hospital". He could not give specific symptoms. He did state that his sleep had decreased r ecently and that he was having very poor attention and concentration and feeling generally distressed . He could not offer other complaints or describe his symptoms more thoroughly. PAST PSYCHIATRIC HISTORY: Patient sees Dr. Luevano and states he has seen him within the last doc h. He has had 4 previous hospitalizations, the last being at this facility on 09/30 to 10/02/2016 un hao the care of Dr. Campbell. ALLERGIES: Trileptal. CURRENT MEDICATIONS: None. PAST MEDICAL HISTORY: Noncontributory. 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 He has had this job for 5 months and states that he enjoys it. He lives alone in an apartment with his cat. His par ents live in [place] and are financially supportive of him. He denies any legal problems or other stressors. He states that he does not have any friends or social interactions "because people think I am angry". When asked what he means by this, he states that "I am 6 foot 2 and my face looks like this". By that he makes a motion to a kind of solorio expression that he states "puts people off". SUBSTANCE ABUSE HISTORY: Patient states he has used marijuana on a daily basis since he was 17 years old and that he uses alcohol occasionally. He admitted to drinking 12 beers on the night prior to a dmission. FAMILY HISTORY: Patient states is noncontributory. ADMISSION LABORATORY: CBC is normal. Serum chemistries are normal. Liver function is normal. Urin e drug screen is positive for amphetamines and marijuana. Alcohol was less than detectable. MENTAL STATUS EXAMINATION: Reveals a somewhat disheveled male who smells strongly of body odor. He is obviously guarded but is willing to talk with me. He does not speak much and will answe r questions in short sentences, but does not offer additional information. He is evasive when asked specifics such as where he works or the nature of his symptoms. He becomes mildly irritated at some of these questions as well, stating in general that I should know these things because I am a doctor. He states that he believes that he needs to be in the hospital and "I know the drill". His affect i s constricted, mildly irritable, at times stable and appropriate. His mood is described as "bad". H is thought process is linear and goal directed. His thought content reveals no evidence of acute psy chosis at this time. He specifically denies any auditory hallucinations or paranoia. He is alert an d oriented to person, place, time, and situation. His sensorium is clear. His intellect appears to be average to low average as evidenced by his fund of knowledge, and vocabulary, though he does have a college degree, so this may be more reflective of his unstable psychiatric condition. He denies re peatedly any thoughts of suicide or homicide and denies ever making those statements. His insight an d judgment appear to be fair. IMPRESSION: Bipolar 1 disorder, most recent episode mixed, severe, with possible psychosis. Chronic illness, recurrent illness, medication noncompliance, social isolation, lack of supports, cannabis u se disorder severe, alcohol use disorder, moderate to severe. Patient is a 31-year-old male who presents at this time of his own volition requesting annamarie hawthorne. Once in the emergency department, he requested to be released, denying all the symptoms he re ported when he showed up. I believe that this was unsafe and that he would deserve to at least to pastor ve an evaluation today. Today, he presents as guarded, though denies feeling paranoid. We will rest art him on the Abilify that he previously took and hold the Vyvanse as this is likely to contribute t o any psychosis that could exist. PLAN: 1. Admit to [facility] inpatient unit on M1 hold. 2. Medication plan as above. 3. Contact Dr. Luevano to touch base. 4. Provide serial clinical interviews to determine his appropriateness for discharge to return home and to go back to work. Estimated length of stay is 3-5 days. /[id number]/MODL
[2017-06-09] MEDS: NICOTINE POLACRILEX 2 MG GUM B PRN ×3 (06:42→12:21)
[2017-06-09] MEDS: ARIPiprazole 10 MG TAB PO SCH (08:19)
--- NOTE | 2017-06-09 16:15 | SOAPPROG ---
SOAP Progress Note Assessment/Plan: Assessment: Plan: 06/09/17 16:15 Schizoaffective D/o: Improving. CCM. Likely d/c tomorrow at the expiration of M-1 hold. Subjective: Pt seen, discussed with staff. Continues to isolate in his room. Compliant with meds. States he wants to go home and is looking forward to camping this summer and going back to work. Case reviewed with Dr. Luevano who agrees to restarting Abilify. Makes appointment for him for 06/13/17 at 1130. Objective: Vital Signs Temp Pulse Resp BP Pulse Ox 36.4 C 93 20 140/70 H 95 06/07/17 19:39 06/08/17 06:00 06/08/17 06:00 06/08/17 06:00 06/08/17 06:00 MSE: Lying in bed sleeping. Poorly groomed, malodorous. Affect is constricted , stable. Mood is "OK." TP linear, abbreviated. TC reveals no overt psychosis. Denies SI/HI/. - Time Spent With Patient Time Spent With Patient: 15" ICD10 Worksheet Patient Problems: Problems Problem Status Onset Acute psychosis Acute Bipolar 1 disorder Acute Alcohol dependence Acute Cannabis use disorder, severe, dependence Acute Other stimulant use, unspecified with stimulant-induced sleep disorder Acute Substance-induced psychotic disorder with delusions Acute Bipolar disease, manic Chronic
[2017-06-10] MEDS: NICOTINE POLACRILEX 2 MG GUM B PRN ×5 (06:32→17:20)
[2017-06-10 06:55] VITALS: RESP 16
[2017-06-10] MEDS: ARIPiprazole 10 MG TAB PO SCH (08:15)
--- NOTE | 2017-06-10 13:20 | SOAPPROG ---
SOAP Progress Note Assessment/Plan: Assessment: Per Dr. Larson's note on 06/09/17: Plan: 06/09/17 16:15 Schizoaffective D/o: Improving. CCM. Likely d/c tomorrow at the expiration of M-1 hold. Subjective: Pt seen, discussed with staff. Continues to isolate in his room. Compliant with meds. States he wants to go home and is looking forward to camping this summer and going back to work. Case reviewed with Dr. Luevano who agrees to restarting Abilify. Makes appointment for him for 06/13/17 at 1130. Plan: 06/10/17 13:17 1. Charity SAHU, trying to confirm patient's f/u appt on 06/13/17. Amadeo SAHU, requested "weekend gericare aide teacher" contact patient's outpatient providers to make f/u appts, but Dr. Larson's note on 06/09/17 indicated he had spoken to Dr. Luevano directly about f/u appt. 2. Patient agrees to sign in voluntary to finalize aftercare plan. 3. Patient tolerating re-starting Abilify, no complaints. Subjective: Met with patient, reviewed chart and d/w staff. Patient is sitting at dining table just finishing lunch. He says he is feeling "better" and denies any SE's from being back on Abilify. He agrees to f/u with Dr. Luevano and to continue to take his meds as prescribed. He doesn't know when he is supposed to see Dr. Luevano next. He denies any thoughts, plan or intent to hurt himself or anyone else. He denies any hallucinations or paranoia. Objective: Vital Signs Temp Pulse Resp BP Pulse Ox 36.6 C 93 16 117/70 96 06/10/17 06:00 06/10/17 06:00 06/10/17 06:00 06/10/17 06:00 06/10/17 06:00 MSE: Affect: Flat Mood: "Better" TP: Linear, more coherent TC: No SI/HI, no hallucinations or paranoia Insight/Judgment: Improved - Time Spent With Patient Time Spent With Patient: 15" - Pending Discharge Pending Discharge Within 24 Hours: No Pending Discharge Within 48 Hours: Yes Pending Discharge Date: 06/12/17 (Will likely d/c Sun or Mon when f/u plans are finalized) Pending Discharge Time: 11:00 ICD10 Worksheet Patient Problems: Problems Problem Status Onset Acute psychosis Acute Bipolar 1 disorder Acute Alcohol dependence Acute Cannabis use disorder, severe, dependence Acute Other stimulant use, unspecified with stimulant-induced sleep disorder Acute Substance-induced psychotic disorder with delusions Acute Bipolar disease, manic Chronic
[2017-06-11] MEDS: NICOTINE POLACRILEX 2 MG GUM B PRN ×2 (03:49→08:18)
[2017-06-11 06:09] VITALS: BP 123/74; PULSE 86; TEMP 97.7; O2SAT 97
[2017-06-11] MEDS: ARIPiprazole 10 MG TAB PO SCH (08:18)
--- NOTE | 2017-06-11 17:34 | BDS ---
[f rep st] BEHAVIORAL HEALTH DISCHARGE SUMMARY REASON FOR ADMISSION: The patient is a 31-year-old man with a history of bipolar disorder. He presented to the ED, stating that he felt "disorganized." He reports having stopped his meds 2- 3 weeks prior to admission, including his Abilify. He cannot give a specific reason why he did this, though states on several occasions "because I am stupid." Patient voiced thoughts of homicide and s uicide when he presented to the ED which were reported by Dr. Vizcaino in the M1 hold. The patient t arely rescinded this when he talked to [facility] and denied it to Dr. Larson on admission to the [facility] stating, "that is just a lie." He states that he is not functioning w ell and needs to get back on his medications. He had no other complaints except that he reported "fe eling psychotic." When asked what he meant by this, the patient said, "Isn't everyone psychotic who is in the hospital." He could not give specific symptoms. He stated that his sleep was decreased re cently. He was having poor attention and concentration. DIAGNOSES ON ADMISSION: 1. Bipolar disorder, type 1, most recent episode mixed, severe, with possible psychosis. 2. Chronic illness. 3. Recurrent illness. 4. Medication noncompliance. 5. Social isolation. 6. Lack of support. 7. Cannabis use disorder, severe. 8. Alcohol use disorder, moderate to severe. The admitting physical examination was done by Dr. Alexis Sexton, revealed no acute physical findin gs. Patient does have a prior history of concussion approximately 6 months prior to this admission. He had slightly elevated blood pressure on admission. Dr. Sexton recommended serial monitoring and follow up with PCP if necessary. ADMISSION LABS: Done in the [facility] ED. White cell count was 5.44, hemoglobin 16.6, hematocrit 47 .4, platelet count 184. Sodium was 142, potassium 4.3, chloride 107, BUN was 13, creatinine was 1.0, glucose was 89, calcium 9.4, total bilirubin 0.7, AST 24, ALT 26, alkaline phosphatase 64, total pro tein 7.3, albumin 4.7. Urine drug screen was positive for marijuana, positive for amphetamine. Acet aminophen level was undetected. Ethyl alcohol level was less than 10. HOSPITAL COURSE: The patient was admitted to the [facility] on an M1 hold. He was cooperative and pleasant. He was interested in getting back on his medications. Dr. Bharath guerrero spoke with the patient's outpatient psychiatrist, Dr. Luevano, on Monday06/09/2017, and Dr. Luevano agreed to put the patient back on Abilify which had been helpful for the patient in the [facility]. He was restarted at his 20 mg daily dose which is what he was supposed to be on outpatient regim en. Patient was compliant with medications. His mood was euthymic. According Dr. Larson's notes, the patient stated that he was looking forward to going home. He was future oriented, interested in making plans for the summer. He gave informed consent to restart his Abilify. Dr. Larson also spok e with Dr. Luevano on the phone and made a followup appointment for the patient on June 13, at 11:30. This MD saw the patient over the weekend. On Monday, the patient stated that he was feeling "better." Denied any side effects from restarting the Abilify. He denied feeling depressed , anxious, or sad. He denied feeling helpless or hopeless. He denied any thoughts, plans, or intent s to hurt himself or anyone else. He denied hallucinations, paranoia. There were no signs or sympto ms of psychosis. The patient did not have any evidence of rocio. He did not have elevated or elated mood. No increase in goal-directed activity. No decrease in need for sleep. He did not have any p ressured speech or racing thoughts. On day of discharge, this MD met with the patient and with his f ather who was visiting him from [place]. Patient states that he felt "ready" to go back to his apa rtment. He would like to start work again on June 19, and said that he would see Dr. Herbie manjarrez on Monday and that he was also scheduled to see Julissa Carvalho, his outpatient therapist when s he gets back from her vacation on June 16. She has a standing appointment every morning, so he would see her on 06/22, but he said that he would call her on the 6th and try to get an early a ppointment if possible. Patient denied any thoughts plans or intents to hurt himself or anyone else. He denied feeling hopeless, helpless. Denied feeling depressed, sad, or anxious. Father said that the patient looked much more stable and said that he does well when he is on his medications. Cherelle oliva did not have any concerns or reservations about the patient going back to his apartment and agreed with the plan for him to follow up with his outpatient providers as soon as possible. Father stated that he would drive the patient over to the [facility] so he could [employer] his vehicle and then would go back and stay with the patient at his apartment for a little while until he drove back to [facility]. CONDITION AT DISCHARGE: The patient was stable. His affect was euthymic. His behavior was appropri ate. He denied any thoughts of suicide or homicide. He had no thoughts, plans, or intents to hurt h imself or anyone else. There was no evidence of psychosis or rocio. He was compliant with medicatio ns and willing to follow up with his outpatient providers for aftercare. DISCHARGE MEDICATIONS: The patient was discharged on Abilify 20 mg p.o. daily. He was given a 7-day supply of this when he left the hospital with no refills since he is seeing his outpatient psychiatr ist, Dr. Luevano, on 06/13/2017 at 11:30. DISCHARGE DIAGNOSES: 1. Bipolar disorder, type 1, most recent episode mixed, severe, with possible psychotic features. 2. Cannabis use disorder, severe. 3. Alcohol use disorder, severe. 4. Psychosocial stressors include chronic mental illness, history of medication noncompliance, socia l isolation, lack of support system. DISPOSITION: The patient was discharged from the hospital into the care of his father who was going to provide him transportation to go and [employer] his vehicle at the [facility], and then patient was to return to his apartment. FOLLOWUP CARE: The patient has appointment with his outpatient psychiatrist, Dr. Luevano, on 06/13, at 11:30. He also has a standing appointment to see his outpatient therapist, Julissa Carvalho, on June 22, 2017. LEGAL COURSE: Patient was placed on a voluntary status upon the expiration of his M1 hold. He was v marthaary at the time of his discharge. /[id number]/MODL
== END 2017-06-11 12:55 | disposition home or self-care (01) | DRG 885 ==
LOC: BBEH 18:00
PROVIDERS: ADMIT Psychiatry & Neurology Psychiatry; ATTEND Psychiatry & Neurology Psychiatry
DX: F31.64 Bipolar disorder, current episode mixed, severe, with psychotic features (principal); T43.596A Underdosing of other antipsychotics and neuroleptics, initial encounter; F12.90 Cannabis use, unspecified, uncomplicated; Z72.89 Other problems related to lifestyle; F17.200 Nicotine dependence, unspecified, uncomplicated
CPT/HCPCS: 80305; G0480

== ENCOUNTER 2017-11-27 23:36 | Emergency (ER) | payer OTHER ==
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
[2017-11-28 00:35] VITALS: BP 113/74
== END 2017-11-28 00:35 | disposition home or self-care (01) ==
LOC: EDUNIT#
DX: F31.9 Bipolar disorder, unspecified (principal); F17.200 Nicotine dependence, unspecified, uncomplicated

== ENCOUNTER 2017-11-29 08:55 | Emergency (ER) | payer OTHER ==
[2017-11-29 09:14] LABS: PLATELET COUNT 181 10^3/uL (150-400)
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
[2017-11-29] MEDS ORDERED: NICOTINE POLACRILEX 2 MG GUM B ONE (17:00)
[2017-11-29] MEDS ORDERED: LORazepam 1 MG TAB ONE (17:00)
[2017-11-29] MEDS ORDERED: LORazepam 1 MG TAB PO ONE (17:01)
[2017-11-29] MEDS ORDERED: NICOTINE POLACRILEX 2 MG GUM B PRN (17:01)
[2017-11-29 18:46] VITALS: BP 127/68
== END 2017-11-29 18:46 ==
DX: F31.4 Bipolar disorder, current episode depressed, severe, without psychotic features (principal); Z91.14 Patient's other noncompliance with medication regimen; F17.210 Nicotine dependence, cigarettes, uncomplicated
CPT/HCPCS: 80305; G0480